=== PATIENT | male | born 1935 | race Caucasian/White ===

== ENCOUNTER 2021-06-01 16:32 | Inpatient (IN) | payer OTHER ==
[~2021-06-01] VITALS: Ht 152.4 cm; Wt 93.0 kg
[~2021-06-01 16:32] MED LIST: AMLODIPINE BESY10 MG PO; ASPIR 8181 MG PO; ASPIRIN81 MG PO; B COMPLEX1 EAC1 PO; CALCIUM; CALCIUM 500 WI1 EAC4 PO; CINNAMON500 MG PO; CLONAZEPAM PO; COUMADIN 5 MG TA5 M1 PO; COUMADIN6 MG OR; COUMADIN7.5 MG PO; DAILY GARLIC O400 MG PO; DIOVAN HCT 3201 EAC1 OR; DIOVAN HCT 3201 EACH PO; DIOVAN320 MG PO; FISH OIL; FISH OIL 1,001000 M1 PO; FISH OIL 1,001000 M2 PO; FISH OIL 1,2001 EAC3 PO; FLEXERIL PO; FLOMAX0.4 MG PO; GARLIC400 MG PO; GLUCOPHAGE500 MG OR; GLUCOPHAGE500 MG PO; HAIR, SKIN & N1 EAC1 OR; HYDROCHLOROTH12.5 M1 PO; HYDROCHLOROTHIA25 M1 PO; JANTOVEN5 MG; LIPITOR 20 MG T20 M1 PO; LO-DOSE ASPIRIN81 M1 OR; MAGNESIUM250 M1 PO; METFORMIN 500500 MG PO; MICRO-K 10 MEQ10 MEQ OR; MIDODRINE HCL 55 M1 PO; MOBIC7.5 M1; MOBIC7.5 MG PO; MULTIVITAMIN W1 EAC5 PO; MULTIVITAMINS PO; NEXIUM40 MG PO; NITROGLYCERIN0.4 MG SL; NORVASC10 MG PO; ONGLYZA2.5 MG; ONGLYZA5 MG PO; OYST-CAL-500500 MG PO; POTASSIUM99 M1 PO; PROSCAR 5MG TABL5 M1 PO; RENA-VITE RX T1 EACH PO; RYTHMOL225 MG PO; RYTHMOL300 MG PO; SORINE 80 MG TA80 M1 PO; SOTALOL 120 MG120 M1 PO; SYNTHROID50 MCG PO; TEKTURNA300 MG OR; TRICOR145 MG PO; VIAGRA50 MG PO; VITAMIN C 250250 MG PO; VITAMIN D3400 UNIT PO; VITAMIN E100 UNI2 PO; VITAMIN E200 UNIT PO; VITAMINC500 PO; VITAMINS
[2021-06-01 16:39] VITALS: BP 162/103
[2021-06-01 17:11] LABS: ABSOLUTE EOSINOPHILS 0.2 thou/uL (0.0-0.7); ABSOLUTE LYMPHOCYTES 1.3 thou/uL (0.8-5.3); ABSOLUTE MONOCYTES 0.8 thou/uL (0.0-1.2); ABSOLUTE NEUTROPHILS 6.7 thou/uL (1.6-8.1); BASOPHILS 0.4 %; EOSINOPHILS 1.9 %; HEMATOCRIT 42.6 % (42.0-52.0); LYMPHOCYTES 14.4 %; MCH 29.6 pg (26.0-34.0); MCHC 32.8 g/dL (28.0-37.0); MCV 90.1 fL (80.0-100.0); MONOCYTES 8.8 %; MPV 8.2 fl. (7.2-11.1); NUCLEATED RBCS 0 /100WBC; PLATELET COUNT* 225 thou/uL (150-400); POLYS 74.5 %; RBC 4.74 mil/uL (4.50-6.00); RDW-CV 15.4 % (10.5-14.5)
[2021-06-01 17:22] LABS: CREATININE 1.1 mg/dL (0.6-1.3); POTASSIUM 5.8 mmol/L (3.5-5.1)
[2021-06-01 17:26] LABS: ALBUMIN 3.5 g/dL (3.4-5.0); TOTAL BILIRUBIN 1.1 mg/dL (<0.1-1.0); TOTAL PROTEIN 7.7 g/dL (6.4-8.2)
[2021-06-01 17:59] LABS: INR 1.2; PROTIME 12.7 Seconds (9.20-11.50)
[2021-06-01 19:21] LABS: URINE BILIRUBIN NEGATIVE (Negative); URINE BLOOD NEGATIVE (Negative); URINE CLARITY CLEAR; URINE COLOR YELLOW; URINE GLUCOSE-RANDOM NEGATIVE (Negative); URINE KETONES NEGATIVE (Negative); URINE LEUKOCYTES NEGATIVE (Negative); URINE NITRITE NEGATIVE (Negative); URINE PROTEIN 2+ (Negative); URINE SPECIFIC GRAVITY 1.025 (1.005-1.030)
[2021-06-01 19:35] LABS: SQUAMOUS 4-10 Moderate /LPF (0-3); URINE RBC 0-2 Rare /HPF (0-2); URINE WBC 0-5 Rare /HPF (0-5)
[2021-06-01 19:36] LABS: BACTERIA 1-9 Few /HPF (None Seen); MUCUS 0-3 Light strn/LPF (None Seen)
[2021-06-01 19:37] LABS: HYALINE CASTS 0-3 Few /LPF (None Seen)
[2021-06-01 19:40] LABS: COARSE GRANULAR CASTS 4-10 Moderate /LPF (None Seen); CRYSTALS None Seen /LPF (None Seen)
[2021-06-01] MEDS ORDERED: DIGOX125 MCG PO (20:27)
[2021-06-01] MEDS ORDERED: WELCHOL 625 MG625 MG PO (20:27)
[2021-06-01] MEDS ORDERED: CLONIDINE HCL0.1 M1 PO (20:30)
[2021-06-01] MEDS ORDERED: TROSPIUM CHLORI20 MG PO (20:31)
[2021-06-01] MEDS ORDERED: MIDODRINE HCL 55 M1 PO (20:31)
[2021-06-01] MEDS ORDERED: LUTEIN-ZEAXANT1 EACH PO (20:32)
[2021-06-01] MEDS ORDERED: FUROSEMIDE 20 M20 MG PO (20:32)
[2021-06-01 22:01] LABS: BE -0.3 mmol/L (-2 to +3); PCO2 49.4 mmHg (35.0-45.0); PO2 73.3 mmHg (75.0-100.0)
[2021-06-02] VITALS (7 sets, daily range): BP systolic 93–130; BP diastolic 60–88
[2021-06-02 10:11] LABS: INFLUENZA A ANTIGEN Negative (Negative); INFLUENZA B ANTIGEN Negative (Negative)
--- NOTE | 2021-06-02 11:01 | EKG ---
[place] [address] ELECTROCARDIOGRAM REPORT Name: JASON ZURITA JR Room: [place] [address] ADM IN .R.#: [id number] Admission: 06/02/21 Attend Phys: Blue Rader Discharge: Date of : 35 Date of Service: 06/01/21 1638 Report #: [id number] THIS REPORT FOR: //name// [facility] ED Test Date: 2021-06-01 Test Time: 16:38:23 Pat Name: JASON ZURITA Department: Room: [facility] Gender: M Clinical Trial Educator: TDS : 1935 Requested By: Anthony Armendariz Order Number: [id number] MD: Christiano Eckert Measurements Intervals [place] Rate: 116 P: MA: QRS: -89 QRSD: 152 T: -4 QT: 368 QTc: 512 Interpretive Statements Atrial fibrillation with a tachycardic ventricular response RBBB and LAFB No previous ECG available for comparison Electronically Signed On 06-02-2021 11:01:49 PRODUCT CONTROL AND LOGISTICS ANALYST by Christiano Eckert [email or web address] <ELECTRONICALLY SIGNED> By: Christiano Eckert MD, [facility] 06/02/21 1101 1638 1638 Christiano Eckert MD, [facility] /EPI
--- NOTE | 2021-06-02 17:40 | 2DMMODE ---
[place] [address] 2 D/M-MODE ECHOCARDIOGRAM Name: JASON ZURITA JR Room: [place] [address] ADM IN [facility]#: [id number] Admission: 06/02/21 Attend Phys: Blue Rader Discharge: Date of : 35 Date of Service: 06/02/21 1739 Report #: [id number] THIS REPORT FOR: cc: Sara Bautista MD, Allison Louise MD Liston, Michael J. MD [facility] ~ APPROVED REPORT Study performed: 06/02/2021 15:49:10 EXAM: Comprehensive 2D, Doppler, and color-flow Echocardiogram Patient Location: In-Patient Room #: er Status: routine BSA: 2.09 HR: 95 bpm BP: 101/60 mmHg Rhythm: Atrial Fibrillation Other Information Study Quality: Good Indications Pacemaker Syncope 2D Dimensions IVSd: 15.85 (7-11mm) LVOT Diam: 21.21 (18-24mm) LVDd: 37.21 mm PWd: 10.59 (7-11mm) Ascending Ao: 32.44 (22-36mm) LVDs: 22.98 (25-40mm) Aortic Root: 33.88 mm Volumes Left Atrial Volume (Systole) LA ESV Index: 41.00 mL/m2 Aortic Valve AoV Peak Tavares.: 2.21 m/s AO Peak Gr.: 19.58 mmHg LVOT Max P.29 mmHg AO Mean Gr.: 12.48 mmHg LVOT Mean P.65 mmHg LVOT Max V: 0.57 m/s AO V2 VTI: 34.62 cm LVOT Mean V: 0.37 m/s AMANDA (VTI): 0.96 cm2 LVOT V1 VTI: 9.40 [place] [address] 2 D/M-MODE ECHOCARDIOGRAM Name: JASON ZURITA JR Room: [address] IN [facility]#: [id number] Admission: 06/02/21 Attend Phys: Blue Rader Discharge: Date of : 35 Date of Service: 06/02/21 1739 Report #: [id number] TDI Lateral E' Tavares.: 0.13 m/s Pulmonary Valve PV Peak Tavares.: 0.77 m/s PV Peak Gr.: 2.35 mmHg Tricuspid Valve RAP Estimate: 15.00 mmHg TR Peak Gr.: 45.08 mmHg RVSP: 60.00 mmHg PA Pressure: 60.00 mmHg Left Ventricle The left ventricle is normal size. There is normal LV segmental wall motion. Mild concentric left ventricular hypertrophy. Left ventricular systolic function is normal. LVEF is 60-65%. This study is not technically sufficient to allow evaluation of the LV diastolic function due to atrial fibrillation. Right Ventricle Right ventricle is moderately dilated. The right ventricular systolic function is normal. Pacemaker lead is present in the right ventricle. Atria Left atrium is moderately dilated. Right atrium is severely dilated. Aortic Valve The Aortic valve is sclerotic. No aortic regurgitation is present. Moderate to severe aortic stenosis. Mitral Valve There is mitral annular calcification. There is no mitral valve regurgitation noted. No evidence of mitral valve stenosis. Tricuspid Valve The tricuspid valve is normal in structure. Moderate tricuspid regurgitation. The RVSP is 65 mmHg. Pulmonic Valve The pulmonary valve is normal in structure. Trace pulmonic regurgitation. Great Vessels The aortic root is normal in size. IVC is dilated and collapses <50% [place] [address] 2 D/M-MODE ECHOCARDIOGRAM Name: JASON ZURITA JR Room: [address] IN [facility]#: [id number] Admission: 06/02/21 Attend Phys: Blue Rader Discharge: Date of : 35 Date of Service: 06/02/21 1739 Report #: [id number] Pericardium There is no pericardial effusion. <Conclusion> The left ventricle is normal size. Mild concentric left ventricular hypertrophy. Left ventricular systolic function is normal. LVEF is 60-65%. This study is not technically sufficient to allow evaluation of the LV diastolic function due to atrial fibrillation. Right ventricle is moderately dilated. Pacemaker lead is present in the right ventricle. Left atrium is moderately dilated. Right atrium is severely dilated. The Aortic valve is sclerotic. Moderate to severe aortic stenosis. There is mitral annular calcification. Moderate tricuspid regurgitation. The RVSP is 65 mmHg. Trace pulmonic regurgitation. IVC is dilated and collapses <50% with inspiration. <ELECTRONICALLY SIGNED> By: Dean Ayon MD, FACC 06/02/21 1739 1739 1739 Dean Ayon MD, FACC /INF
[2021-06-02 19:20] LABS: ABSOLUTE BASOPHILS 0.1 thou/uL (0.0-0.2); ABSOLUTE EOSINOPHILS 0.2 thou/uL (0.0-0.7); ABSOLUTE LYMPHOCYTES 1.1 thou/uL (0.8-5.3); BASOPHILS 0.6 %; EOSINOPHILS 1.8 %; HEMATOCRIT 34.1 % (42.0-52.0); MCH 29.4 pg (26.0-34.0); MCHC 32.8 g/dL (28.0-37.0); MCV 89.6 fL (80.0-100.0); MPV 7.9 fl. (7.2-11.1); NUCLEATED RBCS 0 /100WBC; PLATELET COUNT* 179 thou/uL (150-400); POLYS 74.6 %; RDW-CV 15.5 % (10.5-14.5)
[2021-06-02 19:27] LABS: CALCIUM 8.3 mg/dL (8.5-10.1); CREATININE 1.1 mg/dL (0.6-1.3); POTASSIUM 4.7 mmol/L (3.5-5.1)
[2021-06-02 20:05] LABS: HEMOGLOBIN 11.2 gm/dL (14.0-18.0)
[2021-06-02 20:06] LABS: ABSOLUTE NEUTROPHILS 6.7 thou/uL (1.6-8.1)
[2021-06-03] VITALS: BP 142/96
[2021-06-03 04:00] VITALS: BP 159/100
[2021-06-03 05:52] LABS: ABSOLUTE EOSINOPHILS 0.2 thou/uL (0.0-0.7); ABSOLUTE MONOCYTES 1.1 thou/uL (0.0-1.2); ABSOLUTE NEUTROPHILS 8.1 thou/uL (1.6-8.1); BASOPHILS 0.4 %; EOSINOPHILS 1.9 %; HEMATOCRIT 38.1 % (42.0-52.0); HEMOGLOBIN 12.5 gm/dL (14.0-18.0); LYMPHOCYTES 9.7 %; MCH 29.7 pg (26.0-34.0); MCHC 32.9 g/dL (28.0-37.0); MCV 90.3 fL (80.0-100.0); MONOCYTES 10.7 %; MPV 8.4 fl. (7.2-11.1); NUCLEATED RBCS 0 /100WBC; PLATELET COUNT* 182 thou/uL (150-400); POLYS 77.3 %; RBC 4.22 mil/uL (4.50-6.00); RDW-CV 15.4 % (10.5-14.5); WBC 10.4 thou/uL (4.0-11.0)
[2021-06-03 06:01] LABS: CALCIUM 9.2 mg/dL (8.5-10.1); CREATININE 1.1 mg/dL (0.6-1.3); POTASSIUM 4.3 mmol/L (3.5-5.1)
[2021-06-03 10:30] VITALS: BP 141/79
[2021-06-03 12:39] LABS: BE -2.6 mmol/L (-2 to +3); PCO2 47.8 mmHg (35.0-45.0); PO2 68.9 mmHg (75.0-100.0); pH 7.317 (7.340-7.450)
[2021-06-03 13:12] LABS: ALBUMIN 3.1 g/dL (3.4-5.0); CREATININE 1.4 mg/dL (0.6-1.3); POTASSIUM 4.6 mmol/L (3.5-5.1); TOTAL BILIRUBIN 1.4 mg/dL (<0.1-1.0); TOTAL PROTEIN 7.2 g/dL (6.4-8.2)
[2021-06-03 13:16] LABS: ABSOLUTE BASOPHILS 0.1 thou/uL (0.0-0.2); ABSOLUTE EOSINOPHILS 0.1 thou/uL (0.0-0.7); ABSOLUTE MONOCYTES 1.3 thou/uL (0.0-1.2); ABSOLUTE NEUTROPHILS 9.3 thou/uL (1.6-8.1); BASOPHILS 0.4 %; EOSINOPHILS 0.7 %; HEMATOCRIT 38.8 % (42.0-52.0); HEMOGLOBIN 12.4 gm/dL (14.0-18.0); LYMPHOCYTES 8.4 %; MCH 29.5 pg (26.0-34.0); MCHC 32.1 g/dL (28.0-37.0); MCV 91.8 fL (80.0-100.0); MONOCYTES 11.2 %; MPV 8.1 fl. (7.2-11.1); NUCLEATED RBCS 0 /100WBC; PLATELET COUNT* 177 thou/uL (150-400); POLYS 79.3 %; RBC 4.23 mil/uL (4.50-6.00); RDW-CV 15.7 % (10.5-14.5); WBC 11.7 thou/uL (4.0-11.0)
[2021-06-03 14:44] LABS: BE -0.7 mmol/L (-2 to +3); PCO2 44.8 mmHg (35.0-45.0); pH 7.364 (7.340-7.450)
[2021-06-03 14:47] LABS: PO2 128.2 mmHg (75.0-100.0)
[2021-06-03 18:00] VITALS: BP 165/79
[2021-06-03 19:25] VITALS: BP 166/102
[2021-06-04 02:06] LABS: GLYCOHEMOGLOBIN (HGB A1C) 6.4 % (4.8-5.6)
[2021-06-04 04:40] VITALS: BP 150/79
[2021-06-04 08:00] VITALS: BP 130/79
[2021-06-04 12:04] LABS: CHOLESTEROL 86 mg/dL (<200); HDL CHOLESTEROL 30 mg/dL (>40); LDL CHOLESTEROL 40 mg/dL (<100); TC:HDL 2.9 Ratio (Not establshd); TRIGLYCERIDE 83 mg/dL (<150); VLDL 17 mg/dL (<40)
[2021-06-04 12:06] LABS: SERUM ASSESSMENT Clear
[2021-06-04 19:40] VITALS: BP 102/54
[2021-06-05] VITALS: BP 123/87
[2021-06-05 04:00] VITALS: BP 132/88
[2021-06-05 08:00] VITALS: BP 127/78
[2021-06-05 10:20] LABS: CALCIUM 8.6 mg/dL (8.5-10.1); CREATININE 1.1 mg/dL (0.6-1.3); POTASSIUM 3.9 mmol/L (3.5-5.1)
[2021-06-05 12:00] VITALS: BP 172/108
[2021-06-05 16:00] VITALS: BP 104/71
[2021-06-05 20:00] VITALS: BP 122/77
[2021-06-06] VITALS: BP 132/82
[2021-06-06 04:00] VITALS: BP 119/71
[2021-06-06 05:38] LABS: HEMATOCRIT 37.6 % (42.0-52.0); HEMOGLOBIN 12.1 gm/dL (14.0-18.0); MCH 29.2 pg (26.0-34.0); MCHC 32.2 g/dL (28.0-37.0); MCV 90.7 fL (80.0-100.0); MPV 8.3 fl. (7.2-11.1); NUCLEATED RBCS 0 /100WBC; PLATELET COUNT* 208 thou/uL (150-400); RBC 4.14 mil/uL (4.50-6.00); RDW-CV 15.7 % (10.5-14.5); WBC 13.1 thou/uL (4.0-11.0)
[2021-06-06 06:09] LABS: ALBUMIN 2.4 g/dL (3.4-5.0); CALCIUM 8.6 mg/dL (8.5-10.1); CREATININE 1.3 mg/dL (0.6-1.3); POTASSIUM 4.2 mmol/L (3.5-5.1); TOTAL BILIRUBIN 1.8 mg/dL (<0.1-1.0); TOTAL PROTEIN 6.5 g/dL (6.4-8.2)
[2021-06-06 06:54] LABS: ABSOLUTE LYMPHOCYTES 0.8 thou/uL (0.8-5.3); ABSOLUTE MONOCYTES 0.8 thou/uL (0.0-1.2); ABSOLUTE NEUTROPHILS 11.5 thou/uL (1.6-8.1)
[2021-06-06 06:58] LABS: OVALOCYTES 1+
[2021-06-06 06:59] LABS: PLATELET ESTIMATE ADEQUATE
[2021-06-06 07:00] LABS: POLYCHROMASIA 1+
[2021-06-06 09:00] VITALS: BP 122/64
[2021-06-06 11:45] VITALS: BP 126/85
[2021-06-06 16:47] VITALS: BP 137/89
[2021-06-06 20:00] VITALS: BP 142/84
--- NOTE | 2021-06-06 22:53 | CON ---
[address] [address] CONSULTATION Name: ZURITAJASON JR Room: [address] IN .R.#: [id number] Admission: 06/02/21 Attend Phys: Zulma Christianson Discharge: Date of : 35 Report #: [id number] THIS REPORT FOR: cc: Sara Bautista MD, Allison Louise MD Pervez, Adeel MD ~ DATE OF CONSULTATION: 06/06/2021 REQUESTING PHYSICIAN: Dr. Bruce Asif. INDICATION FOR CONSULTATION: Acute hypoxemic respiratory failure. HISTORY OF PRESENT ILLNESS: An 85-year-old gentleman, past medical history includes a history of severe aortic stenosis. He also has significant pulmonary hypertension in the past. He has been on anticoagulation, which was discontinued due to him having a GI bleed. Watchman procedure and stent has been discussed with the patient but he was thinking about it. This time, the patient was initially admitted on 06/01; presentation was with a syncopal episode. He does take midodrine for orthostatic hypotension at home. He does report that he had injury to the right lower chest. There is a possibility of rib fractures; no definite rib fracture seen on his imaging. The patient currently is on 12 liters of oxygen. He is maintaining O2 saturation with this in the low 90s. There is significant atelectasis at the right lung base on his imaging. He also has a right upper lobe infiltrates on the last CT chest, but no pulmonary emboli. He only appears to be mildly fluid overloaded on exam at this time. He does report shortness of breath. He does report cough with some sputum, which he has difficulty bringing up. He has pain in the right chest associated with respiration and coughing. At this time, he does not have any upper respiratory complaints. He does report swelling of lower extremities. He does not report any change in this recently. He is currently not having calf pain. REVIEW OF SYSTEMS: The patient's review of systems for 12 points is negative except as mentioned above. PAST MEDICAL HISTORY: Atrial fibrillation, previous use of anticoagulation, then discontinued due to gastrointestinal bleeding, [id number]-csnboi aortic stenosis, pulmonary artery systolic is 60. He has significant pulmonary hypertension. I do not have an older echo to compare, orthostatic hypotension. He does take midodrine long-term. His left ventricular ejection fraction is normal. With a history of diabetes, status post pacemaker placement, Guillain-Avery syndrome, hypertension, tonsillectomy, left great toe surgery, umbilical hernia repair, knee replacements, partial thyroidectomy, AFib, [place] [address] CONSULTATION Name: JASON ZURITA JR Room: [address] IN ..#: [id number] Admission: 06/02/21 Attend Phys: Zulma Christianson Discharge: Date of : 35 Report #: [id number] cardioversion x 3. CURRENT MEDICATIONS: List in [employer] reviewed. HOME MEDICATIONS: List in [employer] reviewed. SOCIAL HISTORY: Lifetime nonsmoker. No known history of heavy alcohol use or illegal drug use. ALLERGIES: HE REPORTS ALLERGY TO PENICILLIN AND MORPHINE. He reports having taken cephalosporins in the past without problems. PHYSICAL EXAMINATION: GENERAL: He is alert, awake and oriented, does appear to be short of breath at rest. VITAL SIGNS: Has a pulse of 82 and a blood pressure of 126/85. He is saturating 93%, 12 liters nasal cannula. Respiratory rate around 24-25 at the time of my evaluation, afebrile with a temperature of 36.8. HEENT: Head is normocephalic and atraumatic. Pupils are equal and reactive. There is no throat erythema. NECK: Does not show raised JVP, asymmetry, mass or lymph nodes. CHEST: Symmetrical expansion on inspection and palpation. On auscultation, breath sounds are decreased. Expirations are prolonged. Breath sounds are bilaterally equal. I do not hear any added sounds. There is tenderness on palpation of the right lower chest. ABDOMEN: Soft and nontender. EXTREMITIES: Lower extremities, 1+ edema, no calf tenderness. SKIN: Dry and intact. NEUROLOGIC: Moves all extremities bilaterally equally and spontaneously with no focal deficit identified. Numerous chest x-rays as well as rib x-ray and CTA chest recently. I reviewed the films as well as reports. LABORATORY DATA: In [facility] reviewed. ASSESSMENT AND PLAN: 1. Acute hypoxemic respiratory failure, currently requiring 12 liters of oxygen to maintain O2 saturation in the low 90s. He does have an infiltrate on the CT in the right upper lobe. He also has significant atelectasis in the right lower lobe and there does appear to be a component of bronchospasm and he has mild fluid overload. Still the etiology of his acute hypoxemic respiratory failure is not fully defined at this time. Due to the presence of significant atelectasis, I do recommend that he should remain on a BiPAP while asleep. [address] [address] CONSULTATION Name: JASON ZURITA Room: [address] IN [place].Karishma.#: [id number] Admission: 06/02/21 Attend Phys: Zulma Christianson Discharge: Date of : 35 Report #: [id number] 2. Pulmonary infiltrates; significant infiltrate in the right upper lobe. We will do a CT chest without contrast and follow up on this. Meanwhile, I ordered more cultures and serologies. Continue Levaquin. We will add Zyvox, but that he has a PENICILLIN ALLERGY; however, he tolerates cephalosporins without problems. If indicated, we can add a cephalosporin later. 3. Atelectasis. There is significant atelectasis at the right lung base. Recommend incentive spirometry would also recommend BiPAP while asleep as above also. I am cautiously adding Mucomyst although it does appear to me that there is some component of bronchospasm. 4. Bronchospasm. He is on Solu-Medrol, would continue. I also ordered scheduled nebulized bronchodilators. 5. Mild fluid overload/aortic stenosis. Cardiology service is on the case. He only appears to be mildly fluid overloaded at this time and his creatinine is trending upwards. He has received some Lasix. I decided not to administer more at this time, we will reassess with labs in the morning. 6. Evaluation for thromboembolic phenomena. CT chest did not show pulmonary emboli. He does have significant pulmonary hypertension. Recommend doing venous Dopplers as well. 7. Syncopal episode/right lower chest injury with a questionable rib fracture. Therapy for atelectasis as above, otherwise primarily supportive therapy. 8. Syncope on admission. 9. Atrial fibrillation, was taken off anticoagulation due to gastrointestinal bleeding in the past. 10. Deep venous thrombosis prophylaxis, on Lovenox prophylactic dose. 11. Gastrointestinal prophylaxis, on Protonix. 12. Clostridium difficile prophylaxis. We would add a Lactinex. 13. Hyperglycemia, insulin sliding scale. Thanks for this consultation. <ELECTRONICALLY SIGNED> By: Nabeel Crowell MD 06/06/21 2253 1445 1927Akhurram Crowell MD /nt
[2021-06-07 00:15] VITALS: BP 137/82
[2021-06-07 05:04] LABS: CALCIUM 8.9 mg/dL (8.5-10.1); CREATININE 1.2 mg/dL (0.6-1.3); POTASSIUM 4.1 mmol/L (3.5-5.1)
[2021-06-07 07:00] VITALS: BP 156/89
[2021-06-07 08:39] VITALS: BP 159/95
[2021-06-07 10:50] LABS: CALCIUM 8.9 mg/dL (8.5-10.1); CREATININE 1.4 mg/dL (0.6-1.3); POTASSIUM 4.3 mmol/L (3.5-5.1)
[2021-06-07 12:28] VITALS: BP 133/79
[2021-06-07 17:39] VITALS: BP 138/72
[2021-06-07 21:38] VITALS: BP 137/79
[2021-06-08 01:02] VITALS: BP 133/88
[2021-06-08 04:41] LABS: ABSOLUTE LYMPHOCYTES 0.3 thou/uL (0.8-5.3); ABSOLUTE MONOCYTES 0.9 thou/uL (0.0-1.2); ABSOLUTE NEUTROPHILS 14.5 thou/uL (1.6-8.1); BASOPHILS 0.1 %; HEMATOCRIT 37.1 % (42.0-52.0); MCH 28.8 pg (26.0-34.0); MCHC 32.2 g/dL (28.0-37.0); MCV 89.4 fL (80.0-100.0); MONOCYTES 5.5 %; MPV 8.4 fl. (7.2-11.1); NUCLEATED RBCS 0 /100WBC; PLATELET COUNT* 233 thou/uL (150-400); POLYS 92.4 %; RBC 4.15 mil/uL (4.50-6.00); RDW-CV 15.3 % (10.5-14.5); WBC 15.7 thou/uL (4.0-11.0)
[2021-06-08 05:13] LABS: ALBUMIN 2.2 g/dL (3.4-5.0); CALCIUM 8.7 mg/dL (8.5-10.1); CREATININE 1.2 mg/dL (0.6-1.3); MAGNESIUM 1.9 mg/dL (1.8-2.4); POTASSIUM 4.2 mmol/L (3.5-5.1); TOTAL BILIRUBIN 1.2 mg/dL (<0.1-1.0); TOTAL PROTEIN 5.9 g/dL (6.4-8.2)
[2021-06-08 05:25] VITALS: BP 176/102
[2021-06-08 08:16] VITALS: BP 162/95
[2021-06-08 12:00] VITALS: BP 151/88
[2021-06-08 16:00] VITALS: BP 148/87
[2021-06-08 20:00] VITALS: BP 154/91
[2021-06-09] VITALS: BP 143/92
[2021-06-09 04:00] VITALS: BP 142/84
[2021-06-09 05:02] LABS: ABSOLUTE LYMPHOCYTES 0.3 thou/uL (0.8-5.3); ABSOLUTE MONOCYTES 0.7 thou/uL (0.0-1.2); ABSOLUTE NEUTROPHILS 15.8 thou/uL (1.6-8.1); BASOPHILS 0.1 %; HEMATOCRIT 39.6 % (42.0-52.0); HEMOGLOBIN 12.9 gm/dL (14.0-18.0); LYMPHOCYTES 1.8 %; MCH 29.2 pg (26.0-34.0); MCHC 32.7 g/dL (28.0-37.0); MCV 89.2 fL (80.0-100.0); MONOCYTES 4.2 %; MPV 8.6 fl. (7.2-11.1); NUCLEATED RBCS 0 /100WBC; PLATELET COUNT* 226 thou/uL (150-400); POLYS 93.9 %; RBC 4.43 mil/uL (4.50-6.00); RDW-CV 15.2 % (10.5-14.5); WBC 16.8 thou/uL (4.0-11.0)
[2021-06-09 06:16] LABS: CALCIUM 8.7 mg/dL (8.5-10.1); CREATININE 1.1 mg/dL (0.6-1.3); POTASSIUM 3.8 mmol/L (3.5-5.1)
[2021-06-09 06:46] LABS: CALCIUM 8.7 mg/dL (8.5-10.1); CREATININE 1.1 mg/dL (0.6-1.3); MAGNESIUM 1.9 mg/dL (1.8-2.4); POTASSIUM 3.8 mmol/L (3.5-5.1); TOTAL BILIRUBIN 1.4 mg/dL (<0.1-1.0); TOTAL PROTEIN 6.1 g/dL (6.4-8.2)
[2021-06-09 08:00] VITALS: BP 147/95
[2021-06-09 12:54] VITALS: BP 137/83
[2021-06-09 18:15] VITALS: BP 139/96
[2021-06-09 21:00] VITALS: BP 164/107
[2021-06-10 00:39] VITALS: BP 152/97
[2021-06-10 04:12] VITALS: BP 140/88
[2021-06-10 04:29] LABS: ABSOLUTE LYMPHOCYTES 0.4 thou/uL (0.8-5.3); ABSOLUTE NEUTROPHILS 17.2 thou/uL (1.6-8.1); MPV 8.4 fl. (7.2-11.1); NUCLEATED RBCS 0 /100WBC
[2021-06-10 04:32] LABS: ABSOLUTE MONOCYTES 1.1 thou/uL (0.0-1.2); BASOPHILS 0.2 %; HEMATOCRIT 40.1 % (42.0-52.0); HEMOGLOBIN 13.1 gm/dL (14.0-18.0); MCH 28.9 pg (26.0-34.0); MCHC 32.7 g/dL (28.0-37.0); MCV 88.5 fL (80.0-100.0); MONOCYTES 5.8 %; PLATELET COUNT* 219 thou/uL (150-400); RBC 4.53 mil/uL (4.50-6.00); RDW-CV 15.7 % (10.5-14.5); WBC 18.7 thou/uL (4.0-11.0)
[2021-06-10 04:49] LABS: ALBUMIN 1.8 g/dL (3.4-5.0); CALCIUM 8.6 mg/dL (8.5-10.1); MAGNESIUM 2.1 mg/dL (1.8-2.4); PHOSPHORUS* 3.4 mg/dL (2.5-4.9); POTASSIUM 3.8 mmol/L (3.5-5.1); TOTAL BILIRUBIN 1.3 mg/dL (<0.1-1.0); TOTAL PROTEIN 5.9 g/dL (6.4-8.2)
[2021-06-10 08:00] VITALS: BP 173/94
[2021-06-10] MEDS ORDERED: ACETAMINOPHEN500 M1 PO (13:05)
[2021-06-10] MEDS ORDERED: PYRIDOSTIGMINE60 M1 PO (13:06)
[2021-06-10] MEDS ORDERED: KLOR-CON M2020 MEQ PO (13:16)
[2021-06-10] MEDS ORDERED: LOMOTIL 2.5-0.01 TAB PO (13:23)
[2021-06-10 14:10] VITALS: BP 168/92
[2021-06-10 19:36] VITALS: BP 157/104
[2021-06-10 20:15] VITALS: BP 158/95
[2021-06-11 01:04] VITALS: BP 176/107
[2021-06-11 04:52] LABS: HEMATOCRIT 42.5 % (42.0-52.0); HEMOGLOBIN 13.7 gm/dL (14.0-18.0); MCH 28.5 pg (26.0-34.0); MCHC 32.3 g/dL (28.0-37.0); MCV 88.2 fL (80.0-100.0); MPV 8.3 fl. (7.2-11.1); RBC 4.82 mil/uL (4.50-6.00); RDW-CV 15.6 % (10.5-14.5); WBC 20.3 thou/uL (4.0-11.0)
[2021-06-11 05:07] LABS: CALCIUM 8.5 mg/dL (8.5-10.1); CREATININE 0.9 mg/dL (0.6-1.3); POTASSIUM 3.6 mmol/L (3.5-5.1)
[2021-06-11 06:17] VITALS: BP 151/98
[2021-06-11 09:00] VITALS: BP 155/97
[2021-06-11 16:20] VITALS: BP 125/78
[2021-06-11 20:00] VITALS: BP 136/91
[2021-06-12] VITALS (48 sets, daily range): BP systolic 32–147; BP diastolic 21–90
[2021-06-12 05:09] LABS: HEMATOCRIT 47.5 % (42.0-52.0); HEMOGLOBIN 15.2 gm/dL (14.0-18.0); MCH 28.4 pg (26.0-34.0); MCHC 31.9 g/dL (28.0-37.0); MCV 88.9 fL (80.0-100.0); MPV 8.8 fl. (7.2-11.1); NUCLEATED RBCS 0 /100WBC; PLATELET COUNT* 270 thou/uL (150-400); RBC 5.34 mil/uL (4.50-6.00); RDW-CV 15.9 % (10.5-14.5); WBC 23.1 thou/uL (4.0-11.0)
[2021-06-12 06:07] LABS: ALBUMIN 1.8 g/dL (3.4-5.0); CALCIUM 8.2 mg/dL (8.5-10.1); CREATININE 1.2 mg/dL (0.6-1.3); PHOSPHORUS* 4.2 mg/dL (2.5-4.9); TOTAL BILIRUBIN 1.5 mg/dL (<0.1-1.0)
[2021-06-12 07:41] LABS: ABSOLUTE LYMPHOCYTES 1.8 thou/uL (0.8-5.3); ABSOLUTE MONOCYTES 0.9 thou/uL (0.0-1.2); ABSOLUTE NEUTROPHILS 20.3 thou/uL (1.6-8.1)
[2021-06-12 07:43] LABS: OVALOCYTES 1+; PLATELET ESTIMATE ADEQUATE
[2021-06-12 10:09] LABS: BE 2.7 mmol/L (-2 to +3); PCO2 33.2 mmHg (35.0-45.0); PO2 123.1 mmHg (75.0-100.0); pH 7.498 (7.340-7.450)
[2021-06-12 18:28] LABS: BE -6.5 mmol/L (-2 to +3); PCO2 42.7 mmHg (35.0-45.0)
[2021-06-12 18:31] LABS: PO2 47.9 mmHg (75.0-100.0); pH 7.286 (7.340-7.450)
[2021-06-12 18:44] LABS: ABSOLUTE BASOPHILS 0.1 thou/uL (0.0-0.2); ABSOLUTE LYMPHOCYTES 1.3 thou/uL (0.8-5.3); BASOPHILS 0.2 %; HEMATOCRIT 49.9 % (42.0-52.0); HEMOGLOBIN 15.7 gm/dL (14.0-18.0); MCH 28.3 pg (26.0-34.0)
[2021-06-12 18:46] LABS: ABSOLUTE MONOCYTES 0.6 thou/uL (0.0-1.2); ABSOLUTE NEUTROPHILS 23.3 thou/uL (1.6-8.1); EOSINOPHILS 0.1 %; LYMPHOCYTES 5.1 %; MCHC 31.5 g/dL (28.0-37.0); MCV 89.9 fL (80.0-100.0); MONOCYTES 2.4 %; MPV 9.8 fl. (7.2-11.1); NUCLEATED RBCS 0 /100WBC; PLATELET COUNT* 232 thou/uL (150-400); POLYS 92.2 %; RBC 5.55 mil/uL (4.50-6.00); RDW-CV 16.4 % (10.5-14.5); WBC 25.2 thou/uL (4.0-11.0)
[2021-06-12 18:54] LABS: CALCIUM 6.8 mg/dL (8.5-10.1); CREATININE 1.7 mg/dL (0.6-1.3); POTASSIUM 3.7 mmol/L (3.5-5.1)
[2021-06-12 18:58] LABS: ALBUMIN 1.4 g/dL (3.4-5.0); MAGNESIUM 1.5 mg/dL (1.8-2.4); PHOSPHORUS* 4.3 mg/dL (2.5-4.9); TOTAL BILIRUBIN 2.4 mg/dL (<0.1-1.0); TOTAL PROTEIN 3.5 g/dL (6.4-8.2)
--- NOTE | 2021-06-14 18:02 | CON ---
[address] [address] CONSULTATION Name: JASON ZURITA JR Room: [address] IN M.R.#: [id number] Admission: 06/02/21 Attend Phys: Zulma Christianson Discharge: 06/12/21 Date of : 35 Report #: [id number] THIS REPORT FOR: cc: Sara Bautista MD, Allison Louise MD Khosla, Parveen K. MD ~ DATE OF CONSULTATION: 06/02/2021 HISTORY OF PRESENT ILLNESS: This is an 85-year-old male patient who was evaluated by me for any neurological etiology for the patient's syncope episode. He said he has these episodes for 2 years, he followed up with a ssis architect in [place], Dr. Soto. They diagnosed him with orthostatic hypotension and put him on midodrine. He also has atrial fibrillation, but he is not anticoagulated. He has a pacemaker and he does not know whether that is compatible with MRI or not. REVIEW OF SYSTEMS: Positive for AFib with cardioversion x2 (partial thyroidectomy, bunionectomy, has a pacemaker. He had Guillain-Rock[place] syndrome 30 years ago. He does not have much residual from that. He has diabetes, hypertension, tonsillectomy. He used to be on ____, but he is not on that now. This was his relevant 14-point review of systems. PAST MEDICAL HISTORY: Positive for orthostatic hypotension. FAMILY HISTORY: Unremarkable. PHYSICAL EXAMINATION: He is alert, oriented, able to follow simple and complex command. His speech looks unremarkable. His cranial nerve examination is mostly noncontributory. His neuromuscular examination also appears nonfocal. He did not have any cerebellar sign. He has atrial fibrillation. He has a pacemaker. He does not have any cervical spine tenderness, but he did have a C-spine, which showed multilevel cervical spondylosis. His CT scan was mostly unremarkable. His blood pressure was 130/88, respirations 18, pulse is 89, temperature is 98.8. The GFR is 64, but he had a CT chest today with the dye. IMPRESSION: Pretty difficult to form in this patient, but most likely his dizziness is related to his cardiac problem. However, I may consider CT angiogram tomorrow depending upon what the workup shows, but I will talk to [place] [address] CONSULTATION Name: JASON ZURITA JR Room: [address]#: [id number] Admission: 06/02/21 Attend Phys: Zulma Christianson Discharge: 06/12/21 Date of : 35 Report #: [id number] Thank you very much for this referral. <ELECTRONICALLY SIGNED> By: Prabhu Delgado MD 06/14/21 1802 12 2155Prabhu Delgado MD /karol
--- NOTE | 2021-06-17 13:08 | PATH ---
[address] [address] PATHOLOGY RPT PROCEDURE Name: LINCOLN JOHNSON JR Room: [address] IN M.R.#: [id number] Admission: 06/02/21 Date of : 35 Discharge: 06/12/21 Report #: [id number] Path Case #: [id number] [facility] Accession Number: [id number] . 01 Material submitted: . colon - LEFT COLON/PART SMALL BOWEL. Modifiers: left . 01 Clinical history: . EXPLORATORY LAPAROTOMY . 02 Diagnosis: Left colon/part small bowel: - Segment of benign small intestine anastomosed to benign colon with extensive colonic diverticular disease including chronic and acute diverticulitis, perforation, mural abscess formation, probable fistula, extensive chronic and acute serositis and serosal fibrosis and adhesions and luminal structuring. 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 See comment. (DEBBIE:yarelis; 06/15/2021) . . This case was prepared and proofread by Dr. Manolo Neves and electronically released by Dr. Anastasiya Powell. MBR 06/15/2021 1743 Local . 02 Comment: Review[address] Goldy Dawson' consult note dated 06/08/2021 reveals the patient to have had a colectomy performed at [place] approximately 5 years previous for GI bleeding. (DEBBIE:yarelis; 06/15/2021) . 02 Electronically signed: . Anastasiya Powell MD, Pathologist NPI- [id number] . 01 Gross description: . The specimen is received in formalin, labeled "Lincoln Johnson Jr, left colon/part small bowel" and consists of a portion of small bowel (17.2 cm in length by 2.3 cm in diameter) which is attached presumably to the transverse and descending colon (54.0 cm in length by 1.3 cm - 4.2 cm in diameter) by and end to end intact anastomosis, with abundant attached fat. The transverse colon displays attached omentum (41.3 x 13.0 x 2.5 cm). The serosa is portillo suazo-suazo, dusky and hemorrhagic with prominent areas of overlying fibrinous exudate (ranging from 2.0 x 1.6 cm to 11.3 x 8.8 cm). The proximal margin is inked black, the distal margin is inked blue and the radial margin is selectively ink[place] [address] PATHOLOGY RPT PROCEDURE Name: LINCOLN JOHNSON JR Room: [address] IN [facility].#: [id number] Admission: 06/02/21 Date of : 35 Discharge: 06/12/21 Report #: [id number] Path Case #: [id number] The specimen is opened to reveal, at the proximal transverse colon a prominent outpouching (7.5 x 7.5 x 3.5 cm) with unremarkable mucosa. The lumen in the descending colon displays a focal luminal constriction (1.5 cm in length) that narrows the lumen down to approximately 0.9 cm in diameter. The descending colon displays a suazo-pink polyp (1.0 x 0.7 cm) that comes to within 0.2 cm from the distal margin, 2.0 cm from the radial margin and is located greater than 60.0 cm from the proximal margin. Sectioning through the polyp reveals suazo unremarkable cut surfaces (0.7 cm thick) that appear completely confined to the mucosa without evidence of invasion. . The remaining mucosa displays numerous small and wide mouth simple diverticula (ranging from 0.7 x 0.4 cm to 2.0 x 1.1 cm) Three abscess cavities (ranging from approximately 1.8 x 1.7 x 0.5 cm to 2.0 x 0.7 x 0.4 cm). The second largest abscess cavity displays adjacent dense fibrous tissue. No definitive perforations are identified. A possible fistula tract (1.1 x 0.4 x 0.3 cm) is identified near the second largest abscess cavity. . At the junction of the transverse colon and small bowel is a well-healed anastomotic line (10.0 cm in length by 0.4 cm diameter). The remaining mucosa is portillo-suazo, dusky and unremarkable with normal intestinal folds. Also received in the same container is an additional portion of omentum (12.5 x 10.5 x 1.7 cm) which is partially surfaced with purple-portillo dusky and slightly thickened serosa. Pharmacy Informatics Manager sections to include the entirety of the polyp and distal margin are submitted as follows: . A1: Proximal and distal margin, submitted en face, represented A2-A4: Remainder of distal margin, with perpendicular sections nearest the polyp submitted in A2, entirely submitted A5: Radial margin, submitted en face, represented A6: Polyp, entirely submitted A7: Diverticula, represented A8: Possible fistula tract, represented A9-A11: Abscess cavities, represented A12: Fibrous tissue adjacent to second largest abscess cavity, represented A13: Section taken from area of luminal narrowing, represented A 14: Sections adjacent to anastomotic line, represented A15: Section to show overlying fibrinous exudate, represented A16: Attached omentum, represented A17: Separate omentum, represented (NAPAKIAK; 06/14/2021) DKA/DKA 06/15/2021 1645 Local . 02 Pathologist provided ICD-10: K57.32, K65.8, D12.6 . 02 CPT . 975146 Specimen Comment: A courtesy copy of this report has been sent to [phone] [address] PATHOLOGY RPT PROCEDURE Name: LINCOLN JOHNSON JR Room: [address]#: [id number] Admission: 06/02/21 Date of : 35 Discharge: 06/12/21 Report #: [id number] Path Case #: [id number] Specimen Comment: 1796 Specimen Comment: Report sent to / DR BAUTISTA Performed at: 01 [facility] [place] [address] [place] [address] [address], [place] [id number] MD Ethan Wong MD Phone: [phone] Performed at: [address], [place], [place] [id number] MD Simone Landry MD Phone: [phone]
--- NOTE | 2021-06-19 19:45 | OP ---
[facility] [address] [place] [address] OPERATIVE REPORT Name: JASON ZURITA Room: [address] [place] .R.#: [id number] Admission: 06/02/21 Attend Phys: Zulma Christianson Discharge: 06/12/21 Date of : 35 Report #: [id number] THIS REPORT FOR: cc: Sara Bautista MD, Allison Louise MD Gazzetta, Joshua D. DO ~ DATE OF SURGERY: 06/12/2021 SURGEON: Manfred Neumann DO ARCHITECTURAL TECHNICIAN: Dr. Manuel Grover. PREOPERATIVE DIAGNOSIS: Perforated viscus and peritonitis. POSTOPERATIVE DIAGNOSIS: Perforated sigmoid colon. PROCEDURES PERFORMED: Exploratory laparotomy, left hemicolectomy, end-ileostomy and mesh explantation. INDICATIONS: The patient is an elderly gentleman who presented to the hospital with complaints of abdominal pain. CT scan and physical exam were concerning for a perforated viscus and his family had originally opted for nonsurgical management. On 06/12/2021, the patient became hypotensive and his abdominal pain increased and I had a lengthy discussion with he and his daughters about an operation. He is at very high risk secondary to his aortic stenosis, pulmonary hypertension and CAD. We discussed exploratory laparotomy. He and his voiced complete understanding of all risks and elected to proceed with surgery. Risks include bleeding, infection and damage to nearby structures. Risks of surgery include LA, CVA, DVT and . DESCRIPTION OF PROCEDURE: The patient was taken to the operating theater and placed in supine position. Bilateral SCDs were placed and preoperative antibiotics had been given. General anesthesia was induced without complication. We prepped and draped the patient's abdomen in a standard sterile fashion. A timeout was performed and all were in agreement. We began by making a midline celiotomy incision using a #10 blade scalpel. Dissection was carried down to the midline fascia using electrocautery. The midline fascia was incised using electrocautery and a finger was introduced. The incision was then completely opened over a finger ensuring no intraabdominal adhesions, there were none. Upon abdominal entry, there was a significant amount of stool in the abdomen. This was suctioned out. The patient had a prior right hemicolectomy and ileocolic anastomosis was easily appreciated in the mid abdomen. This was traced over to the splenic flexure and then down into the descending colon. There was a large inflammatory mass with a lot of fibrinous exudate overlying the descending colon and sigmoid colon. After careful blunt dissection using our hands, we were able to peel some of the fibrinous exudate off [place] [address] OPERATIVE REPORT Name: JASON ZURITA JR Room: [address] [place] M.R.#: [id number] Admission: 06/02/21 Attend Phys: Zulma Christianson Discharge: 06/12/21 Date of : 35 Report #: [id number] colon. This revealed a hole in the sigmoid colon. This was closed using a 3-0 silk stitch. The rectum appeared healthy. A mesenteric window was then created distal to the sigmoid perforation in the area of healthy tissue. The mesenteric window was created using a hemostat. A STARR stapler blue load was then used to transect the colon. The mesentery of the sigmoid was then ligated using a LigaSure device as an impact was unavailable. Next, the white line of [place] at the sigmoid colon and descending colon was incised using electrocautery to medialize the colon. The mesentery was then ligated all the way up to the splenic flexure. Splenic flexure was taken down in the same manner following the white line of [place]t around the splenic flexure of the colon. The lesser sac was entered using the LigaSure device and dissection was carried towards where our lateral dissection had ended. This completely mobilized the splenic flexure. The mesentery of the descending colon and distal transverse colon was then ligated using LigaSure device. A mesenteric window proximal to the ileocolic anastomosis was created using a hemostat. A STARR stapler, blue load, was then used to transect the small intestine. The ileocolic anastomosis along the left colon was removed from the surgical field and sent for pathology. The abdomen was thoroughly irrigated until the effluent ran clear and suctioned dry. Next, on that right side of the abdomen, a place for an ileostomy was found. An Allis clamp was used to grasp the skin and a circular incision was made using the electrocautery device. Dissection was carried down to the anterior fascia using electrocautery. The subcutaneous tissue and skin were then excised at the level of the fascia. The anterior fascia was then incised in a cruciate fashion. The rectus abdominis muscle was then split using a hemostat and the posterior fascia was incised using a cruciate incision. Two fingers were introduced into the abdomen and fit through the newly created ostomy site. A [place] was introduced and grasped the staple line of the small intestine. The small intestine was run from ligament of Treitz to the staple line. There were no areas of concern. Next, the midline fascia was closed using two #1 looped PDS. These were tied in the middle. A 3-0 Vicryl stitches were used to loosely close the deep dermis and lissette were loosely placed in the midline incision and iodoform gauze was packed in between the lissette to keep the midline incision slightly open. This was covered with a blue towel. Next, the ileostomy was matured. The staple line was removed using electrocautery. The ileostomy was brooked at the 12, 6, 9 and 3 o'clock position using 3-0 Vicryl. Stitches were placed in between each one of the stitches. These were all 3-0 Vicryl stitches. This was well above the level of the skin. An ostomy device was placed. The midline wound was dressed with abdominal pads and tape. This concluded the procedure. All sponge, needle and instrument counts were correct x 2. COMPLICATIONS: [place] [address] OPERATIVE REPORT Name: JASON ZURITA JR Room: [address]#: [id number] Admission: 06/02/21 Attend Phys: Zulma Christianson Discharge: 06/12/21 Date of : 35 Report #: [id number] ESTIMATED BLOOD LOSS: 30 mL. FINDINGS: Perforated sigmoid colon with feculent peritonitis, 4-quadrant. ANESTHESIA: General endotracheal anesthesia. DRAINS: None. SPECIMEN: Left colon and distal ileum. DISPOSITION: The patient was taken to the ICU, intubated and in critical condition. <ELECTRONICALLY SIGNED> By: Manfred Neumann DO 06/19/211944 [id number] Neumann DO /nt
== END 2021-06-12 23:30 | DRG 981 ==
LOC: M.ERS 16:32 → M.TBA-ER 06-02 00:01 → M.ERS 06-02 00:01 → M.ORTHSURG 06-02 00:10 → M.TBA-ER 06-02 00:10 → M.ERS 06-02 00:10 → M.ORTHSURG 06-02 17:40 → M.2W 06-04 07:26 → M.TBA-ER 06-12 11:39 → M.TBA 06-12 17:44 → M.ICU 06-12 17:45
PROVIDERS: Emergency Medicine Emergency Medical Services; Internal Medicine; Internal Medicine Cardiovascular Disease; Internal Medicine Critical Care Medicine; Personal Emergency Response Attendant; Surgery; ADMIT Internal Medicine; ATTEND Internal Medicine
DX: J69.0 Pneumonitis due to inhalation of food and vomit (principal); I50.43 Acute on chronic combined systolic (congestive) and diastolic (congestive) heart failure; A41.9 Sepsis, unspecified organism; K63.1 Perforation of intestine (nontraumatic); J96.21 Acute and chronic respiratory failure with hypoxia; J96.22 Acute and chronic respiratory failure with hypercapnia; S22.31XA Fracture of one rib, right side, initial encounter for closed fracture; J98.11 Atelectasis; I48.20 Chronic atrial fibrillation, unspecified; E87.0 Hyperosmolality and hypernatremia; J44.1 Chronic obstructive pulmonary disease with (acute) exacerbation; Z20.822 Contact with and (suspected) exposure to COVID-19; E89.0 Postprocedural hypothyroidism; Z96.653 Presence of artificial knee joint, bilateral; I27.20 Pulmonary hypertension, unspecified; E11.65 Type 2 diabetes mellitus with hyperglycemia; I35.0 Nonrheumatic aortic (valve) stenosis; S29.9XXA Unspecified injury of thorax, initial encounter; J61 Pneumoconiosis due to asbestos and other mineral fibers; E87.5 Hyperkalemia; I25.10 Atherosclerotic heart disease of native coronary artery without angina pectoris; I95.1 Orthostatic hypotension; M19.90 Unspecified osteoarthritis, unspecified site; I11.0 Hypertensive heart disease with heart failure; N20.0 Calculus of kidney; K66.8 Other specified disorders of peritoneum; Z95.0 Presence of cardiac pacemaker; Z88.6 Allergy status to analgesic agent; Z88.0 Allergy status to penicillin; X58.XXXA Exposure to other specified factors, initial encounter; Y93.89 Activity, other specified; Y92.89 Other specified places as the place of occurrence of the external cause; Y99.8 Other external cause status